=== PATIENT | male | born 1980 | race Caucasian/White ===

== ENCOUNTER → 2017-03-19 | Outpatient (CLI) | payer OTHER | LOC: MW.CHIM 09:57 | PROVIDERS: ATTEND Internal Medicine | DX: M10.9 Gout, unspecified (principal); I10 Essential (primary) hypertension; E78.5 Hyperlipidemia, unspecified | CPT/HCPCS: 36415; 80053; 80061; 84550; 85025 ==

== ENCOUNTER 2018-01-11 20:31 | Observation (INO) | payer OTHER ==
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
[2018-01-11 21:31] LABS: CHLORIDE,CL 102 mmol/L (98-107); SODIUM,NA 138 mmol/L (136-148)
[2018-01-11] MEDS ORDERED: Sodium Chloride 0.9% 10 ML Syringe FLUSH PRN (21:35)
[2018-01-11] MEDS ORDERED: Sodium Chloride 0.9% 2.5 ML Syringe FLUSH PRN (21:35)
[2018-01-11] MEDS ORDERED: Lactated Ringers 1,000 ML IV SCH (23:30)
[2018-01-11] MEDS ORDERED: Acetaminophen/oxyCODONE 325-5 MG Tab PO PRN (23:47)
[2018-01-12] MEDS: Lactated Ringers 1,000 ML IV SCH ×2 (00:36→10:46)
[2018-01-12] MEDS ORDERED: Acetaminophen 325 MG Tab PO PRN (08:50)
[2018-01-12 11:14] LABS: CHLORIDE,CL 106 mmol/L (98-107); SODIUM,NA 141 mmol/L (136-148)
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
--- NOTE | 2018-01-12 11:21 | PCM.SN ---
- Free Text/Narrative Note: if R foot imaging studies wnl, will teach crutch walking, nonweight bearing amb , ortho fu early next week
[2018-01-12 12:48] VITALS: BP 147/91
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
[2018-01-13] MEDS ORDERED: Iopamidol 755 MG/ML 200 ML Multipack Bottle IVPUSH STA (03:33)
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
--- NOTE | 2018-01-13 15:49 | CR ---
EXAM DATE: 01/11/18 PATIENT'S AGE: 37 Patient: YANIRA ESPINOZA Facility: [place], [place] Site . Site : 1980 Study: XRay Extremity Right foot [id number]/11/2018 1:23:14 PM Ordering Physician: Yaima Oakes Final Report: HISTORY: Swelling. TECHNIQUE: Right foot 2 views. COMPARISON: None. FINDINGS: Moderate hallux valgus with bunion. Mild degenerative arthrosis of the 1st MTP joint. Focal relatively shallow bony protuberance of the proximal 5th metatarsal shaft. No acute fracture. No erosions. IMPRESSION: 1. Focal bony protuberance of the proximal 5th metatarsal shaft may be sequela of remote injury versus small osteochondroma. 2. Hallux valgus with bunion. Mild 1st MTP joint degenerative changes. Dictated by Matthew Berrios MD @ Jan 12 2018 1:29PM (Electronic Signature) Report Signed by Proxy. [facility]
== END 2018-01-12 14:30 | disposition home or self-care (01) ==
LOC: MW.ED 20:31 → MW.MS 20:44
PROVIDERS: ADMIT Surgery; ATTEND Surgery
DX: S27.322A Contusion of lung, bilateral, initial encounter (principal); S00.01XA Abrasion of scalp, initial encounter; F10.920 Alcohol use, unspecified with intoxication, uncomplicated; I10 Essential (primary) hypertension; Y90.7 Blood alcohol level of 200-239 mg/100 ml; V43.52XA Car driver injured in collision with other type car in traffic accident, initial encounter; Z88.8 Allergy status to other drugs, medicaments and biological substances
CPT/HCPCS: 36415; 70450; 71046; 71260; 72125; 73620; 74177; 80053; 80305; 81001; 83690; 85025; 93005; 96365; 99285; A9270; G0480; J7120; Q9967; 96360; 96361; 99284; G0378

== ENCOUNTER 2022-12-12 09:06 | Day surgery (SDC) | payer BC ==
[2022-12-12] MEDS ORDERED: Scopolamine 1.5 MG Transdermal Patch TOP ONE (09:30)
[2022-12-12] MEDS ORDERED: HYDROmorphone 1 MG/ML Syringe IVPUSH PRN (10:33)
[2022-12-12] MEDS ORDERED: fentaNYL 50 MCG/ML SDV IVPUSH PRN (10:33)
[2022-12-12] MEDS ORDERED: Albuterol 0.083% 2.5 MG/3 ML Neb Soln NEB PRN (10:33)
[2022-12-12] MEDS ORDERED: Metoclopramide 10 MG/2 ML SDV IVPUSH PRN (10:33)
[2022-12-12] MEDS ORDERED: Naloxone 0.4 MG/ML SDV IVPUSH PRN (10:33)
[2022-12-12] MEDS ORDERED: Morphine 2 MG/ML SYRINGE IVPUSH PRN (10:33)
[2022-12-12] MEDS ORDERED: Ondansetron 4 MG/2 ML SDV IVPUSH PRN (10:33)
[2022-12-12] MEDS ORDERED: Lactated Ringers 1,000 ML IV SCH (11:00)
[2022-12-12] MEDS ORDERED: ceFAZolin 2 GM in Premix Bag 1 BAG IV ONE (11:00)
[2022-12-12] MEDS ORDERED: Rocuronium Bromide 50 MG/5 ML Syringe ONE (12:19)
[2022-12-12] MEDS ORDERED: Ketorolac 30 MG/ML SDV ONE (12:19)
[2022-12-12] MEDS ORDERED: Ondansetron 4 MG/2 ML SDV ONE (12:19)
[2022-12-12] MEDS ORDERED: Lidocaine 2% 5 ML SDV ONE (12:19)
[2022-12-12] MEDS ORDERED: Sugammadex Sodium 200 MG/2 ML VIAL ONE (12:19)
[2022-12-12] MEDS ORDERED: Dexamethasone 4 MG/ML 5 ML MDV ONE (12:19)
[2022-12-12] MEDS ORDERED: Propofol 200 MG/20 ML SDV ONE (12:20)
[2022-12-12] MEDS ORDERED: fentaNYL 100 MCG/2 ML SDV ONE ×2 (12:20→14:07)
[2022-12-12] MEDS ORDERED: ceFAZolin 2 GM Vial ONE (12:56)
[2022-12-12] MEDS ORDERED: Lidocaine 1% 5 ML VIAL ONE (13:39)
[2022-12-12] MEDS ORDERED: Bupivacaine 0.5% 30 ML SDV ONE ×2 (13:39→16:35)
[2022-12-12] MEDS ORDERED: Rocuronium 100 MG/10 ML MDV ONE ×2 (14:07→16:20)
[2022-12-12] MEDS ORDERED: HYDROmorphone 2 MG/ML Syringe ONE (16:37)
[2022-12-12 18:41] VITALS: BP 143/90; PULSE 89
== END 2022-12-12 19:00 | disposition home or self-care (01) ==
LOC: MW.SDS 09:06
PROVIDERS: ATTEND Podiatrist Foot & Ankle Surgery
DX: D16.32 Benign neoplasm of short bones of left lower limb (principal); M19.072 Primary osteoarthritis, left ankle and foot; M21.6X2 Other acquired deformities of left foot; I10 Essential (primary) hypertension; E55.9 Vitamin D deficiency, unspecified; J06.9 Acute upper respiratory infection, unspecified; E78.00 Pure hypercholesterolemia, unspecified; K21.9 Gastro-esophageal reflux disease without esophagitis; E66.9 Obesity, unspecified; Z68.34 Body mass index [BMI] 34.0-34.9, adult; Z79.899 Other long term (current) drug therapy; Z88.6 Allergy status to analgesic agent; Z98.890 Other specified postprocedural states; Z88.8 Allergy status to other drugs, medicaments and biological substances; Z87.891 Personal history of nicotine dependence
CPT/HCPCS: A9270-GY; J0690; J1100; J1170; J1885; J2405; J2704; J3010; J3490; J7120

== ENCOUNTER 2025-02-10 05:07 | Emergency (ER) | payer BC ==
[2025-02-10] MEDS ORDERED: Sodium Chloride 0.9% 2.5 ML Syringe FLUSH PRN (05:34)
[2025-02-10] MEDS ORDERED: Sodium Chloride 0.9% 20 ML SDV IV PRN (05:34)
[2025-02-10] MEDS ORDERED: Sodium Chloride 0.9% 10 ML Syringe FLUSH PRN (05:34)
[2025-02-10] MEDS: Sodium Chloride 0.9% 1,000 ML IV ONE (05:39)
[2025-02-10 05:54] LABS: BASOPHILS ABSOLUTE AUTO 0.04 K/uL (0.00-0.20); BASOPHILS PERCENT AUTO 0.7 % (0.0-1.0); EOSINOPHILS ABSOLUTE AUTO 0.19 K/uL (0.00-0.45); EOSINOPHILS PERCENT AUTO 3.4 % (0.0-6.0); HEMATOCRIT 41.8 % (42.0-52.0); HEMOGLOBIN 14.3 g/dL (14.0-18.0); IMMATURE GRAN ABSOLUTE AUTO 0.01 K/uL (0.00-0.05); IMMATURE GRAN PERCENT AUTO 0.2 % (0.0-0.4); LYMPHOCYTES ABSOLUTE AUTO 1.61 K/uL (1.00-4.80); LYMPHOCYTES PERCENT AUTO 28.6 % (24.0-44.0); MEAN CORPUSCULAR HEMOGLOBIN 27.9 pg (28.0-32.0); MEAN CORPUSCULAR HGB CONC 34.2 g/dL (32.0-36.0); MEAN CORPUSCULAR VOLUME 81.5 fL (83.0-99.0); MEAN PLATELET VOLUME 10.7 fL (9.4-12.4); MONOCYTES ABSOLUTE AUTO 0.62 K/uL (0.00-0.80); NEUTROPHILS ABSOLUTE AUTO 3.15 K/uL (1.80-7.70); NEUTROPHILS PERCENT AUTO 56.1 % (41.0-71.0); PLATELET COUNT,PLT 245 K/uL (150-400); RED BLOOD CELL COUNT 5.13 M/uL (4.52-5.90); WHITE BLOOD CELL COUNT,WBC 5.62 K/uL (3.9-11.3)
[2025-02-10 06:06] LABS: A/G RATIO 1.3 (0.9-1.6); ALBUMIN 3.9 g/dL (3.4-5.0); BILIRUBIN TOTAL 0.4 mg/dL (0.2-1.0); CALCIUM 8.7 mg/dL (8.5-10.1); CARBON DIOXIDE,CO2 22.3 mmol/L (21.0-32.0); CREATININE 1.5 mg/dL (0.8-1.3); EST CRCL DRUG DOSING (CG) 62.07 mL/min; PROTEIN TOTAL,TP 6.9 g/dL (6.4-8.2)
[2025-02-10 06:13] LABS: MAGNESIUM 2.2 mg/dL (1.8-2.4)
[2025-02-10] MEDS: Iopamidol 755 MG/ML 500 ML Multipack Bottle IVPUSH ONE (06:58)
[2025-02-10 07:46] LABS: APPEARANCE,URINE CLEAR; BILIRUBIN,URINE NEGATIVE (NEGATIVE); COLOR,URINE YELLOW; GLUCOSE,URINE NEGATIVE (NEGATIVE); KETONES,URINE NEGATIVE (NEGATIVE); LEUKOCYTE ESTERASE,URINE NEGATIVE (NEGATIVE); NITRITE,URINE NEGATIVE (NEGATIVE); OCCULT BLOOD,URINE NEGATIVE (NEGATIVE); PH,URINE 7.5 (5.0-8.0); PROTEIN,URINE NEGATIVE (NEGATIVE); UROBILINOGEN,URINE 0.2 EU/dL (<2.0)
[2025-02-10 09:12] VITALS: BP 169/107; PULSE 63
== END 2025-02-10 09:20 | disposition home or self-care (01) ==
LOC: MW.ED 05:07
DX: R07.9 Chest pain, unspecified (principal); I10 Essential (primary) hypertension; E78.00 Pure hypercholesterolemia, unspecified; Z88.8 Allergy status to other drugs, medicaments and biological substances; Z79.899 Other long term (current) drug therapy
CPT/HCPCS: 36415; 71275; 74177; 80053; 81003; 82947; 83690; 83735; 84484; 85025; 93005; 96360; 96361; 99285; J7030; Q9967; 93010; 99283